=== PATIENT | male | born 1975 | race American Indian/Alaskan Native ===

== ENCOUNTER 2021-06-08 01:24 | Emergency (ER) | payer SELFPAY ==
[2021-06-08 01:41] VITALS: BP 130/86
--- NOTE | 2021-06-08 02:45 | Emergency Department Report ---
Chief Complaint: Extremity Injury, Lower Stated Complaint: LEG MUSCLES KEEP JUMPING Time Seen by Provider: 06/08/21 02:36 - HPI History of Present Illness: 46-year-old male patient presents to the emergency department with complaints of an episode of "twitching" in both legs occurring earlier today. No preceding fall, trauma, or injury. No history of similar symptoms. Patient is currently asymptomatic. Patient states his symptoms have not recurred since he arrived in the emergency department over an hour ago. Currently, patient has no complaints. Denies chest pain, shortness of breath, palpitations, vomiting, paresthesias, numbness, weakness. Denies all other complaints at this time. - ROS Review of Systems: GENERAL: Negative for fever. CARDIOVASCULAR: Negative for chest pain. PULMONARY: Negative for shortness of breath. GASTROINTESTINAL: Negative for abdominal pain. MUSCULOSKELETAL: Negative for back pain. NEUROLOGICAL: Negative for headache. INTEGUMENTARY: Negative for rash. - Exam Vital Signs: Vital Signs 06/08/21 01:32 Temperature 98.0 F Pulse Rate 74 Respiratory 16 Rate Blood Pressure 130/86 O2 Sat by Pulse 98 Oximetry Physical Exam: General: Awake, appropriately interactive, no acute distress. Neck: Supple. Full range of motion intact. Cardiovascular: Normal peripheral perfusion. No lower extremity swelling. Pulmonary: No respiratory distress. Patient is speaking normally without use of accessory muscles. Skin: No apparent rashes or lesions. Neurological: No facial asymmetry. Speech is clear. Follows commands. Patient is alert and oriented. Musculoskeletal: Moves all four extremities spontaneously with normal range of motion. Nontender. Psych: Cooperative. Appropriate mood and affect. MSE screening note: Focused history and physical exam performed. Due to findings the following was ordered: ED Medical Decision Making - Medical Decision Making Patient presents to the emergency department for evaluation of "twitching" in his legs earlier today, currently resolved. Patient has been asymptomatic since his arrival to the emergency department. He is afebrile, hemodynamically stable, no distress, ambulatory without assistance. No clinical indication for diagnostic work-up on an emergent basis at this time. Patient has been encouraged to increase his water/electrolyte intake and follow-up with his primary care provider. Instructed to return to the emergency department if symptoms recur, evolve, or worsen. Patient expressed understanding and is agreeable to plan of care. BILLING/CODING: This patient encounter does not represent a certified medical emergency. ED Disposition for MSE Clinical Impression: Encounter for medical screening examination Disposition: 01 HOME / SELF CARE / HOMELESS Is pt being admited?: No Does the pt Need Aspirin: No Condition: Stable Instructions: Medical Screening Exam Additional Instructions: Drink plenty of fluids. Gatorade and Powerade are excellent sources of electrolytes. Follow-up with your primary care provider this week. Call today to schedule an appointment. Return to the emergency department immediately for new or worsening symptoms. Referrals: BETTY NAQVI MD [Staff Physician] - 3-5 Days Time of Disposition: 02:45
== END 2021-06-08 02:51 | disposition home or self-care (01) ==
LOC: ED 01:24
DX: R25.3 Fasciculation (principal); Z00.00 Encounter for general adult medical examination without abnormal findings
CPT/HCPCS: 99281